=== PATIENT | female | born 1960 | race Caucasian/White ===

== ENCOUNTER 2019-03-15 14:24 | Emergency (ER) | payer MEDICAID ==
[~2019-03-15] VITALS: Ht 160 cm; Wt 67.1 kg
[2019-03-15] MEDS ORDERED: LISINOPRIL5 MG ORAL (14:36)
[2019-03-15 14:45] VITALS: BP 149/95
[2019-03-15] MEDS ORDERED: LORazepam 0.5mg tab ORAL ONE (15:30)
--- NOTE | 2019-03-15 15:47 | Emergency Room Report ---
History of Present Illness General Chief Complaint: General Complaint Source: Patient Present Illness HPI 58 YO Female presents to the ED c/o having anxiety with elevated BP due to being under a lot of stress at home, She reports feeling overwhelmed and saddened with current situation. Reports she feels safe and denies being abused or verbally assaulted. Reports increased in tearfulness pt. Denies SI/HI. Denies previous psych hospitalizations. Denies previous trials of psychiatric medications. Denies hx of substance abuse. Pt. does also report difficulty falling and staying asleep. She reports other than HTN she is otherwise healthy. Denies pain, MILLER, paresthesias, neck pain or stiffness. denies N/V. denies visual changes. Allergies: Coded Allergies: No Known Allergies (Unverified , 03/15/19) Patient History Past Medical History: see triage record Past Surgical History: none Pertinent Family History: none Reviewed Nursing Documentation: PMH: Agreed; PSxH: Agreed Nursing Documentation-PMH Past Medical History: No History, Except For Hx Hypertension: Yes Review of Systems All Other Systems: negative except mentioned in HPI Physical Exam Vital Signs Date Time Temp Pulse Resp B/P (MAP) Pulse Ox O2 Delivery O2 Flow Rate FiO2 03/15/19 14:33 98.4 83 17 149/95 (113) 97 Room Air Sp02 EP Interpretation: reviewed, normal General Appearance: no apparent distress, alert, GCS 15, non-toxic Head: normocephalic, atraumatic Eyes: bilateral eye normal inspection, bilateral eye PERRL ENT: hearing grossly normal, normal voice Neck: full range of motion Respiratory: chest non-tender, lungs clear, normal breath sounds, speaking full sentences Cardiovascular #1: regular rate, rhythm, no edema Gastrointestinal: normal bowel sounds, non tender, soft Rectal: deferred Genitourinary: normal inspection Musculoskeletal: back normal, gait/station normal, normal range of motion, non- tender Neurologic: alert, oriented x3, responsive, motor strength/tone normal, sensory intact, speech normal, grossly normal Psychiatric: judgement/insight normal, memory normal, mood/affect normal, no suicidal/homicidal ideation, no delusions, depressed affect - tearful at times Skin: normal color, no rash, warm/dry, well hydrated, other - no evidence of previous PSA's Medical Decision Making PA Attestation Dr. Hyde Is my supervising Physician whom patient management has been discussed with. Diagnostic Impression: Primary Impression: Anxiety as acute reaction to gross stress Additional Impressions: History of high blood pressure Adjustment disorder with mixed anxiety and depressed mood ER Course 58 YO Female presents to the ED c/o having anxiety with elevated BP due to being under a lot of stress at home, She reports feeling overwhelmed and saddened with current situation. Reports she feels safe and denies being abused or verbally assaulted. Reports increased in tearfulness pt. Denies SI/HI. Denies previous psych hospitalizations. Denies previous trials of psychiatric medications. Denies hx of substance abuse. Pt. does also report difficulty falling and staying asleep. She reports other than HTN she is otherwise healthy. Denies pain, MILLER, paresthesias, neck pain or stiffness. denies N/V. denies visual changes. Ddx considered but are not limited to anxiety, ID, PE, asthma, thyroid storm, hyperthyroid, EPS, Depression, Mixed Bi-polar or adjustment disorder just to name a few. Vital signs: are WNL, pt. is afebrile H&PE are most consistent with anxiety attack- pt. under a lot of stress at home , She reports feeling overwhelmed and saddened with current situation. Reports she feels safe and denies being abused or verbally assaulted. pt. Denies SI/HI ORDERS: none required at this time, the diagnosis is clinical ED INTERVENTIONS: -0.5mg Ativan PO Pt. d/w with Mental Health resources. d/w pt. regarding starting trazodone. DISCHARGE: At this time pt. is stable for d/c to home. Will provide printed patient care instructions, and any necessary prescriptions. Care plan and follow up instructions have been discussed with the patient prior to discharge. Last Vital Signs Date Time Temp Pulse Resp B/P (MAP) Pulse Ox O2 Delivery O2 Flow Rate FiO2 03/15/19 14:45 83 17 Room Air 03/15/19 14:45 98.4 149/95 97 Status: improved Disposition: HOME, SELF-CARE Condition: Stable Scripts Trazodone Hcl* (DESYREL*) 50 Mg Tablet 50 MG ORAL BEDTIME for 15 Days, #15 TAB Prov: Jennifer Syed 03/15/19 Referrals: Hermilo Dyer MD (PCP) [facility] Patient Instructions: Adjustment Disorder Additional Instructions: Take medications as directed. Follow up with a Mental Health Specialist/ Psychiatrist in 3-5 days, even if your symptoms have resolved. --Please review [facility] resource information provided. Return sooner to ED if new symptoms occur, or current symptoms become worse. - Please note that this Emergency Department Report was dictated using [employer] technology software, occasionally this can lead to erroneous entry secondary to interpretation by the dictation equipment. Jennifer Syed Mar 15, 2019 15:47
[2019-03-15] MEDS ORDERED: TRAZODONE HCL50 MG ORAL (16:04)
[2019-03-15 16:33] VITALS: BP 133/87
== END 2019-03-15 16:35 | disposition home or self-care (01) ==
LOC: EMR 14:50
DX: F43.0 Acute stress reaction (principal); F43.23 Adjustment disorder with mixed anxiety and depressed mood; I10 Essential (primary) hypertension
CPT/HCPCS: 99282